=== PATIENT | male | born 1990 | race Caucasian/White ===

== ENCOUNTER 2017-03-04 20:02 | Emergency (ER) | payer BC ==
[2017-03-04 20:10] VITALS: TEMP 97.9
--- NOTE | 2017-03-04 21:08 | XR ---
EXAMINATION TYPE: XR finger LT DATE OF EXAM: 03/04/2017 COMPARISON: NONE HISTORY: Laceration TECHNIQUE: 3 views FINDINGS: There is a nondisplaced transverse fracture through the midshaft of the distal phalanx of t he little finger. There is soft tissue deformity. IMPRESSION: Distal phalanx fracture.
[2017-03-04] MEDS ORDERED: CEPHALEXIN 500MG STARTER PACK 4 CAP BTL PO STA (21:37)
[2017-03-04] MEDS ORDERED: ACET/COD 300 MG/30 MG STARTER PACK 6 TAB BTL PO STA (21:37)
--- NOTE | 2017-03-04 21:41 | ED ---
Wound/Laceration HPI - General Chief Complaint: Wound/Laceration Stated Complaint: L hand laceration Time Seen by Provider: 03/04/17 20:16 Source: patient Mode of arrival: ambulatory Limitations: no limitations - Related Data Previous Rx's Medication Instructions Recorded Cephalexin [Keflex] 500 mg PO Q6HR #40 cap 03/04/17 HYDROcodone/APAP 5-325MG [[place] 1 - 2 tab PO Q6HR PRN #15 tab 03/04/17 5-325] Allergies Allergy/AdvReac Type Severity Reaction Status Date / Time Sulfa (Sulfonamide Allergy Unknown Verified 03/04/17 20:10 Antibiotics) Childhood Review of Systems ROS Statement: Those systems with pertinent positive or pertinent negative responses have been documented in the HPI. ROS Other: All systems not noted in ROS Statement are negative. Past Medical History Past Medical History: No Reported History History of Any Multi-Drug Resistant Organisms: None Reported Past Surgical History: No Surgical Hx Reported Past Psychological History: No Psychological Hx Reported Smoking Status: Never smoker Past Alcohol Use History: Occasional Past Drug Use History: None Reported General Exam Limitations: no limitations Course Vital Signs 03/04/17 20:07 Temperature 97.9 F Pulse Rate 58 L Respiratory 18 Rate Blood Pressure 133/80 O2 Sat by Pulse 100 Oximetry Disposition Clinical Impression: Open fracture of distal phalanx of digit of left hand Disposition: HOME SELF-CARE Condition: Good Instructions: Finger Fracture (ED) Additional Instructions: Patient has a follow-up with Dr. gant. Medication as prescribed. Patient needs to remain in the finger splint, take the tube gauze off on Tuesday. And then just keep it covered and use a finger splint. Return to the emergency department if any alarming signs or symptoms occur. Prescriptions: Cephalexin [Keflex] 500 mg PO Q6HR #40 cap HYDROcodone/APAP 5-325MG [[place] 5-325] 1 - 2 tab PO Q6HR PRN #15 tab PRN Reason: Pain Referrals: None,Stated [Primary Care Provider] - 1-2 days Arturo Tinsley DO [Doctor of Osteopathic Medicine] - 1-2 days Time of Disposition: 21:39
[2017-03-04 21:51] VITALS: BP 128/78; PULSE 60; RESP 16
== END 2017-03-04 21:49 | disposition home or self-care (01) ==
LOC: EC 20:02
DX: S62.667B Nondisplaced fracture of distal phalanx of left little finger, initial encounter for open fracture (principal); Z88.2 Allergy status to sulfonamides; W45.8XXA Other foreign body or object entering through skin, initial encounter
CPT/HCPCS: 99283